=== PATIENT | female | born 1970 | race Caucasian/White ===

== ENCOUNTER 2021-02-06 08:01 | Outpatient (REF) | payer BC, SELFPAY ==
[2021-02-06 12:10] LABS: Cholesterol 204 mg/dL; HDL Cholesterol 89 mg/dL; LDL Cholesterol Calculated 104 mg/dl; Triglycerides 57 mg/dL
== END 2021-02-06 08:02 | disposition home or self-care (01) ==
LOC: HO.MANLDS 08:01
PROVIDERS: PCP Internal Medicine; Visit Provider Physician Assistant
DX: Z00.00 Encounter for general adult medical examination without abnormal findings (principal)
CPT/HCPCS: 36415; 80061

== ENCOUNTER 2021-11-29 08:00 | Outpatient (REF) | payer BC, SELFPAY ==
[2021-11-29 11:09] LABS: MANUAL DIFF FLAG NO
[2021-11-29 11:14] LABS: Basophils Percent Auto 0.5 % (0-2); Eosinophils Absolute Auto 0.2 X10*3/uL (0.0-0.4); Hematocrit 40.8 % (37.0-47.0); Hemoglobin 13.1 g/dl (12.0-16.0); Imm Gran Abs Auto 0.02 X10*3/uL (0.00-0.03); Imm Gran Pct Auto 0.3 % (0.0-0.4); Lymphocytes Absolute Auto 1.4 X10*3/uL (1.2-4.9); Lymphocytes Percent Auto 22.6 % (20-40); Mean Corpuscular HGB Conc 32.1 g/dl (31.0-35.0); Mean Corpuscular Hemoglobin 29.4 pg (27.0-33.0); Mean Corpuscular Volume 91.7 fL (80.0-98.0); Mean Platelet Volume 10.9 fL (9.4-12.3); Monocytes Absolute Auto 0.7 X10*3/uL (0.1-1.2); Monocytes Percent Auto 11.2 % (2-11); Neutrophils Absolute Auto 3.9 x10*3/uL (2.0-8.3); Neutrophils Percent Auto 62.4 % (45-73); Platelet Count 333 X10*3/uL (160-400); Red Blood Count 4.45 X10*6/uL (4.20-5.50); Red Cell Distribution Width 12.5 % (11.0-16.0); White Blood Count 6.2 X10*3/uL (4.8-10.8)
[2021-11-29 11:44] LABS: Alanine Aminotransferase 13 U/L (0-31); Albumin Level 4.2 g/dL (3.5-5.0); Alkaline Phosphatase 59 U/L (39-117); Anion Gap 12 (12-20); Aspartate Amino Transferase 12 U/L (5-31); Bilirubin Total 0.4 mg/dL (0.0-1.0); Blood Urea Nitrogen 10 mg/dL (9-16); Calcium 9.1 mg/dL (8.4-10.2); Carbon Dioxide 26 mmol/L (22-29); Chloride 107 mmol/L (96-108); Cholesterol 194 mg/dL; Estimated Glomerular Filt Rate > 60; Glucose Fasting 80 mg/dL (60-99); HDL Cholesterol 69 mg/dL; LDL Cholesterol Calculated 110 mg/dl; Potassium 4.7 mmol/L (3.3-5.1); Sodium 140 mmol/L (135-145); Total Protein 6.8 g/dL (6.5-8.0); Triglycerides 75 mg/dL
== END 2021-11-29 08:01 | disposition home or self-care (01) ==
LOC: HO.MANLDS 08:00
PROVIDERS: PCP Physician Assistant; Visit Provider Physician Assistant
DX: Z00.00 Encounter for general adult medical examination without abnormal findings (principal)
CPT/HCPCS: 36415; 80053; 80061; 85025

== ENCOUNTER 2023-09-24 07:28 | Outpatient (REF) | payer BC, SELFPAY ==
[2023-09-24 14:56] LABS: Thyroid Stimulating Hormone 0.62 uIU/mL (0.32-4.0)
[2023-09-29 01:54] LABS: Estradiol Ultra Sensitive 157 pg/mL
[2023-10-03 20:14] LABS: Progesterone 15.9 ng/mL
[2023-10-07 14:33] LABS: Testosterone, Total 23 ng/dL (2-45)
== END 2023-09-24 07:29 | disposition home or self-care (01) ==
LOC: HO.MANLDS 07:28
PROVIDERS: Visit Provider Physician Assistant
DX: N95.1 Menopausal and female climacteric states (principal); G93.32 Myalgic encephalomyelitis/chronic fatigue syndrome
CPT/HCPCS: 82670; 82672; 83001; 83002; 84144; 84146; 84403; 84443

== ENCOUNTER 2025-04-09 09:05 | Outpatient (REF) | payer BC, SELFPAY ==
--- OUTSIDE RECORDS SUMMARY | 2025-04-09 09:19 | XMS_ITS | Data Portability ---
Author Organization [facility] Home Service Address [address] [place] [address] Assessment No assessment recorded. Plan of Treatment Reminders Order Date Submit Date Provider Last Modified By Organization Details Last Modified Time Details Appointments FOLLOW UP 15 2024 09:30A MARTHA ANDERSON Not available Not available Not available ANNUAL EXAM 2024 02:15P MARTHA ANDERSON Not available Not available Not available Lab lipid panel, blood 2024 025 [facility] [address], [place], [address], 12/09/2024 14:10:15 estradiol , serum 2022 023 [facility], [address] [place] [address], [address], 09/30/2023 11:34:06 lh + FSH, serum 2022 023 [facility], [address] [place] [address], [address], 09/27/2023 12:40:45 progester one, serum 2022 023 [facility], [address] [place] [address], [address], 10/04/2023 11:25:58 prolactin , serum 2022 023 [facility], [address] [place], [place] [address], [place], [address], 09/26/2023 12:59:43 TSH + free T4, serum 2022 023 [facility], [address] [place] [address], [address], 09/25/2023 12:10:51 testoster one, total, serum 2022 023 [facility], [address] [place] [address], [address], 09/23/2023 16:14:19 estrogen, total, serum 2022 023 [facility], [address] [place] [address], [address], 10/15/2023 12:32:03 Referral gastroent erologist referral 2024 025 [facility], [address] [place], [address], 12/11/2024 08:34:46 general surgeon referral 2022 023 quang Cornelius MD, [address] [facility], [place], [address], 09/24/2023 11:54:23 gynecolog ist referral 2021 022 hrubner Not available 11/27/2022 14:59:08 Procedures None recorded. Surgeries None recorded. Imaging MAMMO, screening , digital, bilateral 2024 025 hrubmaria g [facility] (Screening Mammos, 6-Mos F-Up, Breast Procedures), [address] [place], [address], 12/23/2024 08:07:52 XR, chest, 2 view 2022 023 PRITESH Not available 11/23/2023 15:37:22 barium swallow study 2022 023 hrubner Not available 10/07/2023 08:29:02 Medication Orders paroxetin e 10 mg tablet 2022 023 rtryba [facility], [address] [place], [place], [id number], 12/09/2024 14:02:32 benzonata te 200 mg capsule 2022 023 [email or web address] [facility]89[facility], [address] [place], [place], [id number], 12/09/2024 13:48:38 phentermi ne 15 mg capsule 2022 023 PRITESH [facility]138, [address] [place], [place], [id number], 11/22/2023 09:10:25 Patient TargetsNo targets recorded. Patient InstructionsNo instructions recorded. 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 nopause having menopausal symptoms, would like to discuss HRT Referring Physician: Bree Reno, Internal Medicine, Encounter Date: 11/23/2022 General Surgeon Referral for Lipoma of skin lipoma of the abdomen, causing more discomfort in the area Referring Physician: Bree Reno, Internal Medicine, Encounter Date: 09/23/2023 Triple Air Valve Tester Referral for Screening colonoscopy screening colonoscopy due Referring Physician: Bree Ren[facility], Encounter Date: 12/09/2024 Results Created Date Observation Date Name Description Value Unit Range Abnormal Flag Note LastModifiedBy Organization Detail LastModifiedTime 10/30/2010/30/2023 tova huggins study No observ ation record ed. [email or web address] [facility] [address] [place], [address], 11/04/2023 08:15:02 11/23/20 23 11/22/2023 XR, chest , 2 view No observ ation record ed. [facility] [address] [facility] [address], [place], [address], 11/27/2023 09:01:51 Result Notes None recorded. Problems Name Problem SNOMED Code Status Onset Date Resolution Date Notes Provider Name and Address Organization Details Recorded Time Gastroesop hageal reflux disease 691567304 Active 2017 [facility] 8 14:33:04 Rheumatoid arthritis 82130906 Active [address] [facility] 8 14:33:25 Fracture of foot 75389557 Active [address] [facility] 8 14:33:46 Menopause Active 2021 MARTHA HARTMANN [address] [place] [address], [address], [facility] 2 10:12:10 Herpes labialis 7544628 Active 2022 MARTHA HARTMANN [address] [place] [address], [address], [facility] 3 11:25:21 Epigastric pain 11794936 Active 2022 MARTHA HARTMANN [address] [place] [address], [address], [facility] 3 16:09:33 Lipoma of skin 915063631 Active 2022 MARTHA HARTMANN [address] [place] [address], [address], [facility] 3 16:15:32 Cough 38310279 Active 2022 MARTHA HARTMANN [address] [place] [address], [address], [facility] 3 09:14:06 Pneumonia 206886233 Active 2024 MARTHA HARTMANN [address] [place] [address], [address], [facility] 5 12:16:52 Varicella- zoster virus infection 132210316 Active 2024 Rodríguez NinoskaFaustino Kebede, [address] [place], [address], [facility] 5 14:31:51 Problem Notes None recorded. Procedures Surgical History Date Name Laterality Status Provider Name and Address Organization Details Recorded Time 12/02/19 14 Date of Last Pap Smear completed March Damon, [address], [address], [facility] 11/03/2018 09:25:22 12/02/19 12 Most Recent Mammogram completed March [facility] [address], [address], [facility] 11/03/2018 09:26:17 Imaging Results Imaging Date Name Status LastModified by Organiz ation Details LastModified Time 10/30/2023 barium swallow study completed [address] [facility] [address] [place], [address], 11/04/2023 08:15:02 11/22/2023 XR, chest, 2 view completed [facility] [address] [place] [address] [address], [place], [address], 11/27/2023 09:01:51 Procedure Notes None recorded. Medical Equipment None Reported. Allergies Allergen ID Allergen Name Allergen Category Reaction Reaction Severity Criticality Documentation Date Start Date Code Code System Note Provider Name and Address Organization Details Recorded Time 3620 Celebrex medicatio n rash Not available Not available 11/04/2019 55291 7 [facility] 9 14:38:45 Medications Name Sig Start Date Stop Date Status Note LastModified by Organization Details LastModified Time amoxicillin 500 mg capsule TAKE 4 CAPSULES BY MOUTH 1 HOUR PRIOR TO DENTAL APPOINTME NT THEN 1 CAPSULE BY MOUTH THREE TIMES DAILY FOR 1 WEEK 09/23 completed Not Available Not Available Not Available prednisone 10 mg tablet 40 mg x 2 days30 mg x 2 days20 mg x 2 days10 mg x 2 days active Not Available Not Available No t Available doxycycline hyclate 100 mg capsule TAKE 1 CAPSULE BY MOUTH TWICE DAILY FOR 10 DAYS active Not Available Not Available No t Available paroxetine 10 mg tablet TAKE 1 TABLET BY MOUTH EVERY DAY 12/09 completed Not Available Not Available Not Available ibuprofen 800 mg tablet TAKE 1 TABLET BY MOUTH EVERY 6 TO 8 HOURS NEEDED FOR PAIN 11/07 completed Not Available Not Available Not Available benzonatate 200 mg capsule TAKE 1 CAPSULE BY MOUTH THREE TIMES DAILY FOR 14 DAYS NEEDED 12/09 completed Not Available Not Available Not Available valacyclovi r 1 gram tablet TAKE 1 TABLET BY MOUTH EVERY 12 HOURS FOR 7 DAYS active Not Available Not Available No t Available phentermine 15 mg capsule TAKE 1 CAPSULE BY MOUTH DAILY 2024 active Not Available Not Available Not Avai lable folic acid 400 mcg tablet 09/23 completed Not Available Not Available Not Available doxycycline monohydrate 100 mg tablet TAKE 1 TABLET BY MOUTH ONCE DAILY WITH FOOD 11/07 completed Not Available Not Available Not Available acyclovir 800 mg tablet 07/18 completed Not Available Not Available Not Available methotrexat e sodium 2.5 mg tablet TAKE 4 TABLETS BY MOUTH EVERY WEEK active Not Available Not Available No t Available tobramycin 0.3 % eye drops INSTILL 1 DROP IN RIGHT EYE EVERY 6 HOURS 11/07 completed Not Available Not Available Not Available triamcinolo ne acetonide 0.1 % topical ointment APPLY A THIN LAYER TO THE AFFECTED AREA(S) BY TOPICAL ROUTE 2 TIMES PER DAY 11/06 completed Not Available Not Available Not Available folic acid 1 mg tablet once per week active Not Available Not Available No t Available gabapentin 100 mg capsule 11/07 completed Not Available Not Available Not Available ergocalcife rol (vitamin D2) 1,250 mcg (50,000 unit) capsule TAKE 1 CAPSULE BY MOUTH 1 TIME A WEEK 03/22 completed Not Available Not Available Not Available hydroxychlo roquine 200 mg tablet 09/04 completed Not Available Not Available Not Available ibuprofen 600 mg tablet TAKE 1 TABLET BY MOUTH EVERY 6 HOURS FOR PAIN 11/22 completed Not Available Not Available Not Available amoxicillin 875 mg-potassiu m clavulanate 125 mg tablet TAKE 1 TABLET BY MOUTH EVERY 12 HOURS UNTIL FINISHED 11/07 completed Not Available Not Available Not Available Laxative (bisacodyl) 5 mg tablet TAKE 4 TABLETS BY MOUTH DIRECTED PER INSTRUCTI ONS active Not Available Not Available No t Available Boostrix Tdap 2.5 Lf unit-8 mcg-5 Lf/0.5 mL intramuscul ar syringe 11/06 completed Not Available Not Available Not Available chlorhexidi ne gluconate 0.12 % mouthwash 09/23 completed Not Available Not Available Not Available magnesium qd 11/22 completed Not Available Not Available Not Available multivitami n 11/22 completed Not Available Not Available Not Available GaviLyte-G 236 gram-22.74 gram-6.74 gram-5.86 gram oral solution MIX AND DRINK DIRECTED active Not Available Not Available No t Available Vitamin D2 Take one tablet once a day 12/09 completed Not Available Not Available Not Available Fluarix Quad (PF) 60 mcg (15 mcg x 4)/0.5 mL IM syringe 11/06 completed Not Available Not Available Not Available Salena 24 Fe 1 mg-20 mcg (24)/75 mg (4) tablet TAKE 1 TABLET BY MOUTH DAILY 09/23 completed Not Available Not Available Not Available Flucelvax Quad (PF) 60 mcg (15 mcg x 4)/0.5 mL IM syringe 07/18 completed Not Available Not Available Not Available Fluarix Quad (PF) 60 mcg (15 mcg x 4)/0.5 mL IM syringe ADMINISTE R 0.5ML IN THE MUSCLE DIRECTED 11/07 completed Not Available Not Available Not Available Vitals Date Recorded Body height Body mass index (BMI) Body weight Heart rate Oxygen saturation Oxygen saturation in Arterial blood by Pulse oximetry Systolic blood pressure Diastolic blood pressure Provider Name and Address Organization Details Last Updated DateTime 2 166.37 cm 27.4 kg/m2 32139.9 3 g 60 /min 98 % 98 % 124 mm[Hg] 60 mm[Hg] MARTHA HARTMANN [address] [place], [address] [place], [place] - [facility] 2 10:06:25 Date Recorded Body height Body mass index (BMI) Body weight Heart rate Oxygen saturation Oxygen saturation in Arterial blood by Pulse oximetry Systolic blood pressure Diastolic blood pressure Provider Name and Address Organization Details Last Updated DateTime 3 166.37 cm 29.1 kg/m2 57802.3 6 g 68 /min 98 % 98 % 114 mm[Hg] 72 mm[Hg] Edita Dsouza [facility] 3 16:04:34 Date Recorded Body height Body mass index (BMI) Body weight Heart rate Oxygen saturation Oxygen saturation in Arterial blood by Pulse oximetry Systolic blood pressure Diastolic blood pressure Provider Name and Address Organization Details Last Updated DateTime 3 166.37 cm 28.8 kg/m2 37080.2 6 g 72 /min 99 % 99 % 135 mm[Hg] 70 mm[Hg] Michaelle Mcfadden [facility] 3 08:57:31 Date Recorded Body height Body mass index (BMI) Body weight Heart rate Oxygen saturation Oxygen saturation in Arterial blood by Pulse oximetry Systolic blood pressure Diastolic blood pressure Provider Name and Address Organization Details Last Updated DateTime 5 166.37 cm 28.8 kg/m2 62527.2 6 g 74 /min 98 % 98 % 130 mm[Hg] 88 mm[Hg] Trena Rodriguez [facility] 5 13:53:53 Social History Question Answer Notes LastModified by Organizat ion Details LastModified Time Tobacco Smoking Status Never Smoker Not Available [facility] 10/04/2020 03:36:24 Do You Or Have You Ever Used E-cigarettes Or Vape? Never Used Electronic Cigarettes [id number] Information not available 10/04/2020 What Was The Date Of Your Most Recent Tobacco Screening? 12/09/2024 [email or web address] Information not available 12/09/2024 Do You Or Have You Ever Used Smokeless Tobacco? Never Used Smokeless Tobacco [id number] Information not available 10/04/2020 How Much Tobacco Do You Smoke? No [id number] Information not available 10/04/2020 How Many Years Have You Smoked Tobacco? 0 [id number] Information not available 10/04/2020 Sex: Unknown Functional Status None recorded. Mental Status None recorded. Family History Relationship Description Onset Age of this Age Resolved Age Notes LastModified by Organization Details LastModified Time Father Carcinoma of prostate [email or web address] Not available 2017 14:34:35 Brother Malignant neoplasm of skin [email or web address] Not available 2017 14:34:53 Medical History No medical history recorded. Gynecological History Statement/Question Response Abnormal Pap N Date of LMP 11/02/2018 STIs/STDs N Age at Menarche 15 Current Control Method None Most Recent Mammogram 12/02/2011 Age at First Child 37 Sexually Active? Y Menses Monthly Y Date of Last Pap Smear 12/02/2013 Sexual Problems? N Desired Control Method None LMP Definite Obstetrics History GPAL:G 4 P 2 1 1 3 Type Value Full Term 2 Induced 0 Spontaneous 1 Premature 1 Living 3 Ectopics 0 Total 4 Immunizations Vaccine Type Date Status Note Provider Nam e and Address Organization Details Recorded Time Influenza, split virus, quadrivalent, preservative 1 completed [facility] 11/03/2021 08:49:27 COVID-19, mRNA, LNP-S, PF, 100 mcg/0.5mL dose or 50 mcg/0.25mL dose 1 completed Bianca rosario [facility] 11/03/2021 08:49:55 COVID-19, mRNA, LNP-S, PF, 100 mcg/0.5mL dose or 50 mcg/0.25mL dose 1 completed Bianca rosario [facility] 11/03/2021 08:50:02 influenza, unspecified formulation 2 completed MARTHA HARTMANN [address] [place] [address], [address], [facility] 11/23/2022 10:05:36 influenza, unspecified formulation 4 completed MARTHA HARTMANN [address] [place] [address], [address], [facility] 12/09/2024 13:59:56 Influenza, split virus, quadrivalent, preservative 8 completed COOPER Fenton [address] [place] [address], [address], [facility] 11/03/2018 09:17:43 Tdap 9 completed March COOPER Jose [address] [place], [address], [facility] 11/06/2019 09:11:46 Influenza, split virus, quadrivalent, preservative 0 completed Dori Kelsey marlene [facility] 11/22/2020 14:04:13 Past Encounters Encounter ID Performer Location Encounter Start Date Encounter Closed Date Diagnosis/Indication Diagnosis SNOMED-CT Code Diagnosis ICD10 Code Diagnosis Note [id number] Rodríguez Kebede [facility] [address] [facility] [address] 11/03/2018 09:01:23 11/03/2018 11:17:43 Active or passive immunization 479930161 Z23 Adult [facility] th examination 451189555 Z00.00 will schedule pap Myopia 51152437 H52.13 [id number] Rodríguez Kebede [facility] [address] [facility], [place] [address] 12/29/2018 10:02:59 12/29/2018 13:33:04 Skin lesion 35638818 L98.9 not apparently infectious will treat as allergic [id number] Rodríguez Kebede [facility] [address] [facility] [address] 09/04/2019 11:25:52 09/04/2019 11:47:49 Gastroesophageal reflux disease 222131781 K21.9 Abdominal bloating 66877 9008 R14.0 [id number] Rodríguez Kebede [facility] [address] [facility],[place] [address] 11/06/2019 08:53:04 11/06/2019 09:22:05 Adult health examination 896645776 Z00.00 scheduled for december for pap Abdominal bloating 99686 9008 R14.0 Active or passive immunization 766068017 Z23 waiting until not sick to have flu shot [id number] Rodríguez Kebede [facility] [address] [facility],[place] [address] 07/18/2020 10:24:01 07/18/2020 11:17:46 Abdominal mass 435075441 R19.00 will check to see if it is in fact a hernia will fu after results Gastroesop hageal reflux disease 968546867 K21.9 fu with GI doing well per patient stable [id number] Rodríguez Kebede DO [facility] [address] [facility] [address],[place] [address] 01/18/2021 11:43:05 01/18/2021 13:33:29 Adult health examination 965038004 Z00.00 only needs cholestero l as she just had bw excluding cholestero l from rheum BP was excellent Perimenopa usal disorder 016926291 N95.9 will monitor symptoms and fu when becoming closer to menopause to discuss options for medication or treat of symptoms [id number] Rodríguez Kebede DO [facility] [address] [facility],[place] [address] 11/07/2021 08:58:01 11/07/2021 14:58:55 Active or passive immunization 213984442 Z23 advised Adult heal th examination 204791535 Z00.00 only needs cholestero l as she just had bw excluding cholestero l from rheum BP was excellent Screening for malignant neoplasm of cervix 552920103 Z12.4 will set up for gynecology [id number] Rodríguez Kebede DO [facility] [address] [facility],[place] [address] 11/23/2022 10:03:02 11/23/2022 10:46:08 Active or passive immunization 399385770 Z23 advised Adult heal th examination 408209956 Z00.00 only needs cholestero l as she just had bw excluding cholestero l from rheum BP was excellent Menopause 556492938 N95. 1 will fu with custodial worker for discussion about HRT Screening for malignant neoplasm of colon 592844171 Z12.11 will fu with cologuard Screening mammography 24 522367 Z12.31 had it done this spring at [facility] request records [id number] Rodríguez Kebede DO [facility] [address] [facility] [address],[place] [address] 09/23/2023 15:57:45 09/23/2023 16:53:38 Epigastric pain 83953492 R10.13 will set up with barium swallow study Menopause 157604672 N95. 1 will set up with lab work for hormone level testing Lipoma of skin 135896883 D17.1 will set up with general surgery [id number] Rodríguez Kebede [facility] [address] [facility] [address],[place] [facility] [address] 11/22/2023 08:51:08 11/22/2023 10:44:44 Adult health examination 137805730 Z00.00 only needs cholestero l as she just had bw excluding cholestero l from rheum BP was excellent Body mass index 25-29 - overweight 631263760 Z68.28 will set up with Menopause 992121610 N95. 1 will trial on paxil Cough 25485648 R05.2 will set up with cough [id number] [facility] [address] [facility],[place] [address] 12/09/2024 13:41:06 12/09/2024 14:11:16 Active or passive immunization 822757322 Z23 advised Adult heal th examination 159706593 Z00.00 only needs cholestero l as she just had bw excluding cholestero l from rheum BP was excellent Depression screening 171 814658 Z13.31 SCREENING NEGATIVE Screening colonoscopy 44 9751417 Z12.11 set up for screening Screening mammography 24 171251 Z12.31 had it done this spring at [facility] request records Health Concerns Section Related Observation LastModified by Organization Detai ls LastModified Time None Recorded Concern Status LastModified by Organization Details LastModified Time None Recorded Advance Directives Directive None Recorded Payers Encounter Date Sequence Insurance Name Policy Number Policy Hickey Covered Member ID Hickey Member ID Guarantor Name 11/23/2022 1 [place] [id number] Trang Suad [id number] Trang Suad 09/23/2023 1 [place] [id number] Trang Suad [id number] Trang Suad 11/22/2023 1 [place] [id number] Trang Suad [id number] Trang Suad 12/09/2024 1 [place] [id number] Trang Borjas [id number] Trang Borjas Notes Date Note Type Note Provider Name and Address Organization Details Recorded Time 2 text/html Annual WellnessReported bypatient.Diet and Nutrition:healthy diet; discussed vitamin and supplement use; discussed portion control; discussed maintaining calcium balance; discussed diet improvement Fracture Risk:no history of fractures; no recent explained fracture; no sudden unexplained fractures; no previous musculoskeletal injuries Physical Activity:exercises on a regular basis; recent increase in physical activity; good physical condition Additional Lifestyle Factors:no tobacco use; drinks alcohol (mild-moderate) Depression Risk:never feels sad, empty, or tearful; no loss of interest in activities; no significant changes in weight; no sleep disturbances or insomnia; no agitation; no loss of energy; no feelings of worthlessness or guilt; no thoughts of suicide; no history of depression; no history of mood disorders Hearing:no loss of hearing Vision:no vision problems MARTHA HARTMANN [address] [place] [address], [address], [facility] 11/23/2022 10:24:01 3 text/html c/o epigastric pain will set up with hormone testing due to perimenopausal symptoms lipoma of the skinsub cutaneous layerwill set up with [employer] never got conveyed correctlydiscussed imaging, agreed to go now MARTHA HARTMANN [address] [place] [address], [address], [facility] 09/23/2023 16:22:14 3 text/html Annual WellnessReported bypatient.Diet and Nutrition:healthy diet; discussed vitamin and supplement use; discussed portion control; discussed maintaining calcium balance Fracture Risk:no history of fractures; no recent explained fracture; no sudden unexplained fractures; no previous musculoskeletal injuries Physical Activity:exercises on a regular basis; recent increase in physical activity; good physical condition; discussed weightbearing activities; discussed exercise habits Additional Lifestyle Factors:no tobacco use; stopped drinking alcohol; drinks alcohol (mild-moderate) Depression Risk:never feels sad, empty, or tearful; no loss of interest in activities; no significant changes in weight; no sleep disturbances or insomnia; no agitation; no loss of energy; no feelings of worthlessness or guilt; no thoughts of suicide; no history of depression; no history of mood disorders Hearing:no loss of hearing Vision:no vision problems the patient reports that she is having insomnia (staying asleep)no evidence of sleep apneahas not tried anything for it concerned about weight, she is in menopause MARTHA HARTMANN [address] [place] [address], [address], [facility] 11/22/2023 09:23:18 5 text/html Annual WellnessReported bypatient.Diet and Nutrition:healthy diet; discussed vitamin and supplement use; discussed portion control; discussed maintaining calcium balance; discussed diet improvement Fracture Risk:no history of fractures; no recent explained fracture; no sudden unexplained fractures; no previous musculoskeletal injuries Physical Activity:exercises on a regular basis; recent increase in physical activity; good physical condition Additional Lifestyle Factors:no tobacco use; no alcohol intake; stopped drinking alcohol Depression Risk:never feels sad, empty, or tearful; no loss of interest in activities; no significant changes in weight; no sleep disturbances or insomnia; no agitation; no loss of energy; no feelings of worthlessness or guilt; no thoughts of suicide; no history of depression; no history of mood disorders Hearing:no loss of hearing Vision:no vision problems AMRTHA HARTMANN [address] [place] [address], [phone], [facility] Internal [facility] 12/09/2024 14:09:40 OBGyn Episode No OBEpisode recorded.
--- OUTSIDE RECORDS SUMMARY | 2025-04-09 09:19 | XMS_ITS | Continuity of Care Document ---
Author Name [facility] Organization [facility] Care Team Providers Care [facility] [employer] Up Helper Name Role Phone [facility] Unavailable Unavailable Social History Combined list of available smoking, tobacco, and other social history from [facility] and [facility] facilities. Social History Type Response Date Comment Sourc e This section is an empty social history section. [facility]
[2025-04-09 13:58] LABS: Cholesterol 216 mg/dL (<200); HDL Cholesterol 79 mg/dL (>40); LDL Cholesterol Calculated 125 mg/dL (<100); Triglycerides 62 mg/dL (<150)
== END 2025-04-09 09:06 | disposition home or self-care (01) ==
LOC: HO.MANLDS 09:05
PROVIDERS: Visit Provider Physician Assistant
DX: Z00.00 Encounter for general adult medical examination without abnormal findings (principal); Z13.6 Encounter for screening for cardiovascular disorders
CPT/HCPCS: 36415; 80061